=== PATIENT | female | born 1955 | race Caucasian/White ===

== ENCOUNTER 2021-02-14 08:48 | Emergency (ER) | payer MEDICARE, BC ==
[~2021-02-14] VITALS: Ht 162.6 cm; Wt 71.5 kg
[2021-02-14] MEDS ORDERED: DIAZEPAM 5 MG TABLET ONE (09:21)
[2021-02-14] MEDS ORDERED: OXYcodone/APAP 5/325MG TABLET ONE (09:21)
[2021-02-14 09:34] LABS: BASOPHILS % (AUTO) 1 % (0-1); EOSINOPHILS % (AUTO) 0 % (1-7); LYMPHOCYTES % (AUTO) 12 % (22-44); MEAN CORPUSCULAR HEMOGLOBIN 31.8 pg (27.0-34.8); MEAN CORPUSCULAR HGB CONC 34.2 g/dL (32.4-35.8); MEAN PLATELET VOLUME 6.9 fL (7.4-10.4); MONOCYTES % (AUTO) 6 % (2-9); NEUTROPHILS % (AUTO) 81 % (42-75); PLATELET COUNT 289 x10^3/uL (130-400); RED BLOOD COUNT 4.24 x10^6/uL (3.82-5.3); RED CELL DISTRIBUTION WIDTH 13.2 % (9.6-15.2)
[2021-02-14 09:36] LABS: MD NO
[2021-02-14 09:42] LABS: ALBUMIN 4.2 g/dL (3.4-5.0); ANION GAP 5 mmol/L (5-15); CALCIUM 9.3 mg/dL (8.5-10.1); CHLORIDE 97 mmol/L (98-107); CREATININE 0.92 mg/dL (0.55-1.02)
--- NOTE | 2021-02-14 09:49 | NUR ---
PT MEDICATED ORDRD PER LINO CHARLTON. PT REPORTS LOW BACK PAIN TO BUTTOCKS AFTER PICKING UP DOG BOWL EARLIER THIS WEEK. PT DID VOMIT AFTER TAKING MOTRIN LAST NOC BUT HAS NOT LES NAUSEATED OR VOMITED SINCE. PT IN RAD FOR IMAGING. SHE DENIES ANY ANY PARAESTHESIAS OR INCONTINENCE.
[2021-02-14] MEDS ORDERED: OXYcodone/APAP 5/325MG TABLET PO ONE (10:00)
[2021-02-14] MEDS ORDERED: DIAZEPAM 5 MG TABLET PO ONE (10:00)
[2021-02-14 10:09] LABS: MICROSCOPIC INDICATED
[2021-02-14 10:36] VITALS: BP 138/78
== END 2021-02-14 10:38 | disposition home or self-care (01) ==
LOC: ED 09:33
DX: S39.012A Strain of muscle, fascia and tendon of lower back, initial encounter (principal); I10 Essential (primary) hypertension; X58.XXXA Exposure to other specified factors, initial encounter; Y93.89 Activity, other specified; Y92.89 Other specified places as the place of occurrence of the external cause; Y99.8 Other external cause status
CPT/HCPCS: 36415; 72110; 80048; 81001; 82040; 85025; 99284